=== PATIENT | female | born 1935 | race Caucasian/White ===

== ENCOUNTER 2018-05-10 18:08 | Emergency (ER) | payer MEDICARE ==
[~2018-05-10] VITALS: Ht 170.2 cm; Wt 66.2 kg
[2018-05-10] MEDS ORDERED: FOSAMAX 70 MG T70 MG PO (18:19)
[2018-05-10] MEDS ORDERED: ASPERCREME1 EACH TOP (18:20)
[2018-05-10] MEDS ORDERED: LIPITOR40 MG PO (18:21)
[2018-05-10] MEDS ORDERED: BUSPIRONE HCL10 MG PO (18:21)
[2018-05-10] MEDS ORDERED: COREG25 MG PO (18:21)
[2018-05-10] MEDS ORDERED: CALCIUM CITRAT250 MG PO (18:21)
[2018-05-10] MEDS ORDERED: DEPAKOTE ER250 MG PO (18:22)
[2018-05-10] MEDS ORDERED: COLACE100 MG PO (18:22)
[2018-05-10] MEDS ORDERED: CO Q-10100 MG PO (18:22)
[2018-05-10] MEDS ORDERED: PLAVIX 75 MG TA75 MG PO (18:22)
[2018-05-10] MEDS ORDERED: CEROVITE SENIO1 EACH PO (18:22)
[2018-05-10] MEDS ORDERED: LASIX 20 MG TAB20 MG PO (18:23)
[2018-05-10] MEDS ORDERED: FISH OIL 1,001000 M2 PO (18:23)
[2018-05-10] MEDS ORDERED: ARICEPT 5 MG TAB5 MG PO (18:23)
[2018-05-10] MEDS ORDERED: GAVILAX17 GM PO (18:24)
[2018-05-10] MEDS ORDERED: HYDRALAZINE 2525 MG PO (18:24)
[2018-05-10] MEDS ORDERED: ONDANSETRON HCL4 M2 PO (18:25)
[2018-05-10] MEDS ORDERED: MAPAP325 MG PO (18:25)
[2018-05-10] MEDS ORDERED: PROTONIX40 M1 PO (18:25)
[2018-05-10] MEDS ORDERED: ATIVAN0.5 MG PO (18:25)
[2018-05-10] MEDS ORDERED: KLOR-CON 1010 MEQ PO (18:26)
[2018-05-10] MEDS ORDERED: ZOLOFT25 MG PO (18:27)
[2018-05-10] MEDS ORDERED: VITAMIN B125000 MCG PO (18:27)
[2018-05-10] MEDS ORDERED: VITAMIN D1000 UNIT PO (18:28)
[2018-05-10] MEDS ORDERED: VITAMIN E400 UNI5 PO (18:28)
[2018-05-10] MEDS ORDERED: CYCLOBENZAPRINE10 MG PO (18:29)
[2018-05-10] MEDS ORDERED: XARELTO15 MG PO (18:29)
[2018-05-10] MEDS ORDERED: IPRATROPIU0.2 MG/1 M INH (18:29)
[2018-05-10] MEDS ORDERED: NITROGLYCERIN0.4 MG SUBLING (18:30)
[2018-05-10] MEDS ORDERED: TRIAMCINOLONE A80 G2 TOP (18:32)
[2018-05-10] MEDS ORDERED: KEFLEX500 M1 PO (18:32)
[2018-05-10 19:31] VITALS: BP 143/71
== END 2018-05-10 19:31 | disposition home or self-care (01) ==
LOC: M.ERS 18:08
DX: L30.9 Dermatitis, unspecified (principal); L03.114 Cellulitis of left upper limb; G30.9 Alzheimer's disease, unspecified; F02.80 Dementia in other diseases classified elsewhere, unspecified severity, without behavioral disturbance, psychotic disturbance, mood disturbance, and anxiety; F31.9 Bipolar disorder, unspecified; K21.9 Gastro-esophageal reflux disease without esophagitis; F41.9 Anxiety disorder, unspecified; Z98.62 Peripheral vascular angioplasty status; Z88.5 Allergy status to narcotic agent; Z88.8 Allergy status to other drugs, medicaments and biological substances